=== PATIENT | female | born 1985 | race Caucasian/White ===

== ENCOUNTER 2021-07-18 05:54 | Emergency (ER) | payer SELFPAY ==
[~2021-07-18] VITALS: Ht 165 cm; Wt 64.3 kg
[~2021-07-18 05:54] MED LIST: ACET-789 PO; ACET1TAB43 PO; ACHD5005 PO; ALPR1TAB2 PO; ATEN25TA PO; BUPR100T7 PO; CODE-54 PO; CYCL10TA25 PO; DCS100C PO; DICL75TA2 PO; FLUO20CA42 PO; HYDR-3720 PO; HYDR-757 PO; Ibuprofen PO; LISI-594 PO; MELA1TAB10 PO; NAPR-1071 PO; OXYC1TAB87 PO; PRD20T PO; PREN1TAB86 PO; PRM25T PO; PROM25TA14 PO; RANI-609 PO; SERT50TA PO; SIMV20TA26 PO; TRM50T PO; VALP250C3 PO
[2021-07-18] MEDS ORDERED: LACTATED RINGERS 1,000 ML IV STA ×2 (06:22→10:08)
--- NOTE | 2021-07-18 06:22 | ED Back Pain ---
General Chief Complaint: Back Problems Stated Complaint: BACK PAIN/NAUSEA/VOMITING Nursing Triage Note: Pt c/o lower back pain with n/v since last . Pt denies urinary symptoms, fever, or back injury/trauma. Pt ambulatory with steady gait in ED but does appear to be in pain and is holding lower back. (DAVEY MG DO) History of Present Illness Date Seen by Provider: Jul 18, 2021 Time Seen by Provider: 06:15 Initial Comments 36-year-old female presents with low back pain. She reports that started about 6 days ago. That he gets worse with any type of movement. She also reports nausea and vomiting. Patient states that she had a stomach bug recently but she has some back pain before then. That is getting worse. It feels better if she keeps her legs up, worse with leg extension. That the pain is in the middle and radiates both sides but worse to the left. That she occasionally gets sharp shooting pain down her leg. She also has some pain in her left groin. She denies any fever or chills. She denies any dysuria. (DAVEY MG DO) Allergies and Home Medications Allergies Coded Allergies: cefaclor (Verified Allergy, Unknown, 06/08/15) latex (Verified Allergy, Unknown, 06/08/15) morphine (Verified Allergy, Unknown, 06/08/15) ITCHING sumatriptan (Verified Allergy, Unknown, 06/08/15) Patient Home Medication List Home Medication List Reviewed: Yes (DAVEY MG DO) Acetaminophen (Tylenol Extra Strength) 500 Mg Tablet, 1,000 MG PO Q6H Prescribed by: ÁNGEL VICKERS on 07/18/21 1202 Acetaminophen with Codeine (Tylenol with Codeine #3 Tablet) 1 Each Tablet, 1-2 EACH PO Q4H Prescribed by: TARA MCNALLY on 06/08/15 1417 Alprazolam (Xanax) 1 Mg Tablet, 1 MG PO TID, (Reported) Entered as Reported by: TARA MCNALLY on 06/08/15 1122 Atenolol (Atenolol) 25 Mg Tablet, 25 MG PO BID, (Reported) Entered as Reported by: ALBARO ESPINOZA on 11/19/14 1524 Bupropion HCl (Wellbutrin Sr) 100 Mg Tablet.er, Unknown Dose PO UD, (Reported) Entered as Reported by: SUSSY CHRISTIAN on 11/05/152139 Cyclobenzaprine HCl (Cyclobenzaprine HCl) 10 Mg Tablet, 10 MG PO Q8H PRN for SPASMS Prescribed by: ÁNGEL VICKERS on 07/18/211201 Ibuprofen (Ibuprofen) 600 Mg Tablet, 600 MG PO Q6H PRN for PAIN-MILD Prescribed by: ÁNGEL VICKERS on 07/18/21 120 Lidocaine (Lidocaine 5% Patch) 5 % Adh..patch, 1 EACH TP Q12H PRN for Neuropathic pain Prescribed by: ÁNGEL VICKERS on 07/18/211201 Naproxen (Naprosyn) 500 Mg Tablet, 500 MG PO BID PRN for PAIN Prescribed by: JAYDON MCCRARY on 11/05/152225 Oxycodone HCl/Acetaminophen (Percocet 5-325 mg Tablet) 1 Each Tablet, Unknown Dose PO UD, (Reported) Entered as Reported by: SUSSY CHRISTIAN on 11/05/152139 Prednisone (Prednisone) 20 Mg Tab, 40 MG PO DAILY Prescribed by: JAYDON MCCRARY on 11/05/152225 Simvastatin (Simvastatin) 20 Mg Tablet, 20 MG PO HS, (Reported) Entered as Reported by: CORIE GILL on 06/06/15 150 Valproic Acid (Valproic Acid) 250 Mg Capsule, 1 CAP PO BID, (Reported) Entered as Reported by: SUSSY CHRISTIAN on 11/05/152139 Review of Systems Constitutional: No chills, No fever EENTM: no symptoms reported Respiratory: no symptoms reported Cardiovascular: no symptoms reported Gastrointestinal: No abdominal pain, No diarrhea; nausea, vomiting Genitourinary: no symptoms reported Musculoskeletal: back pain Skin: no symptoms reported Psychiatric/Neurological: No Symptoms Reported (DAVEY MG DO) Past Izgvdcd-Dqvlyc-Xcjbml Hx Patient Social History Tobacco Use?: No Use of E-Cig and/or Vaping dev: Yes E-Cig or Vaping type used: Nicotine Use of E-Cig and/or Vaping Cristino: Current Everyday User Substance use?: No Alcohol Use?: No Pt feels they are or have been: No (DAVEY MG DO) Immunizations Up To Date Influenza Vaccine Up-to-Date: No; Not Current Second COVID19 Vaccination Luis Daniel: Moderna (DAVEY MG DO) Seasonal Allergies Seasonal Allergies: No (CHERI MGR Karli [place]) Past Medical History Hysterectomy, Nose Hypertension, Irregular Heartbeat Headaches /Migraines Reproductive Disorders: No 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 UTI-Chronic Arthritis Anxiety, Depression Adverse Reaction/Blood Tranf: No (CHERI MGR Karli [place]) Family Medical History Cancer Grandfather, Onset:Unknown (Pancreatic & Prostate) Dementia Grandfather, Onset:Unknown Family history: Arthritis 19 MOTHER, Onset:Unknown Family history: Diabetes mellitus 19 MOTHER, Onset:Unknown Family history: Gastrointestinal disease G8 BROTHER, Onset:Unknown ( IBS) Family history: Hypertension 19 MOTHER, Onset:Unknown Grandfather, Onset:Unknown Grandmother, Onset:Unknown Hearing loss G8 BROTHER, Onset:Unknown Daughter, Onset:Unknown History of - respiratory disease 19 MOTHER, Onset:Unknown (COPD) Stroke Grandfather, Onset:Unknown Grandmother, Onset:Unknown No Pertinent Family Hx (DAVEY MG DO) Physical Exam Vital Signs Vital Signs - First Documented 07/18/21 05:55 Temp 37.0 Pulse 151 Resp 17 B/P (MAP) 157/107 (124) Pulse Ox 97 O2 Delivery Room Air (ÁNGEL VICKESR MD) Vital Signs Capillary Refill : Less Than 3 Seconds (DAVEY MG DO) Height, Weight, BMI Height: 5'5" Weight: 128lbs. 3.2oz. 58.408710dg; 23.00 BMI Method:Stated General Appearance: Mild Distress Neck: Full Range of Motion, Normal Inspection Cardiovascular: Tachycardia Respiratory: Lungs Clear, Normal Breath Sounds Back: Vertebral Tenderness (diffuse lumbar ) Extremity: Normal Capillary Refill, Normal Range of Motion Neurologic/Psychiatric: Alert, Oriented x3, No Motor/Sensory Deficits, Normal Mood/Affect, client support consultant II-XII Norm as Tested Skin: Normal Color, Warm/Dry (DAVEY MG DO) Progress/Results/Core Measures Results/Orders Lab Results Laboratory Tests Test 07/18/21 06:05 07/18/21 06:10 Range/Units Urine Color YELLOW Urine Clarity CLEAR Urine pH 8.0 5-[address] [place] 1.015 L 1.016-1.022 Urine Protein NEGATIVE NEGATIVE Urine Glucose (UA) NEGATIVE NEGATIVE Urine Ketones NEGATIVE NEGATIVE Urine Nitrite NEGATIVE NEGATIVE Urine Bilirubin NEGATIVE NEGATIVE Urine Urobilinogen 0.2 < = 1.0 MG/DL Urine Leukocyte Esterase NEGATIVE NEGATIVE Urine RBC (Auto) NEGATIVE NEGATIVE Urine RBC RARE /HPF Urine WBC RARE /HPF Urine Squamous Epithelial Cells 2-5 /HPF Urine Crystals NONE /LPF Urine Bacteria TRACE /HPF Urine Casts NONE /LPF Urine Mucus MODERATE H /LPF Urine Culture Indicated NO White Blood Count 10.9 4.3-11.0 10^3/uL Red Blood Count 4.94 3.80-5.11 10^6/uL Hemoglobin 15.5 11.5-16.0 g/dL Hematocrit 44 35-52 % Mean Corpuscular Volume 88 80-99 fL Mean Corpuscular Hemoglobin 31 25-34 pg Mean Corpuscular Hemoglobin Concent 36 32-36 g/dL Red Cell Distribution Width 12.1 10.0-14.5 % Platelet Count 200 130-400 10^3/uL Mean Platelet Volume 9.9 9.0-12.2 fL Immature Granulocyte % (Auto) 0 % Neutrophils (%) (Auto) 90 H 42-75 % Lymphocytes (%) (Auto) 4 L 12-44 % Monocytes (%) (Auto) 5 0-12 % Eosinophils (%) (Auto) 1 0-10 % Basophils (%) (Auto) 0 0-10 % Neutrophils # (Auto) 9.7 H 1.8-7.8 10^3/uL Lymphocytes # (Auto) 0.5 L 1.0-4.0 10^3/uL Monocytes # (Auto) 0.6 0.0-1.0 10^3/uL Eosinophils # (Auto) 0.1 0.0-0.3 10^3/uL Basophils # (Auto) 0.0 0.0-0.1 10^3/uL Immature Granulocyte # (Auto) 0.0 0.0-0.1 10^3/uL Neutrophils % (Manual) 77 % Lymphocytes % (Manual) 1 % Monocytes % (Manual) 5 % Metamyelocytes % 1 % Myelocytes % 1 % Band Neutrophils 12 % Atypical Lymphocytes 1 % Reactive Lymphocytes 2 % Platelet Estimate NORMAL Blood Morphology Comment NORMAL Erythrocyte Sedimentation Rate 3 0-20 MM/HR Sodium Level 138 135-145 MMOL/L Potassium Level 4.3 3.6-5.0 MMOL/L Chloride Level 107 98-107 MMOL/L Carbon Dioxide Level 18 L 21-32 MMOL/L Anion Gap 13 5-14 MMOL/L Blood Urea Nitrogen 23 H 7-18 MG/DL Creatinine 0.62 0.60-1.30 MG/DL Estimat Glomerular Filtration Rate 119 BUN/Creatinine Ratio 37 Glucose Level 123 H 70-105 MG/DL Calcium Level 9.1 8.5-10.1 MG/DL Corrected Calcium 8.7 8.5-10.1 MG/DL Total Bilirubin 0.3 0.1-1.0 MG/DL Aspartate Amino Transf (AST/SGOT) 16 5-34 U/L Alanine Aminotransferase (ALT/SGPT) 21 0-55 U/L Alkaline Phosphatase 78 40-136 U/L C-Reactive Protein 0.78 H <0.50 MG/DL Total Protein 7.2 6.4-8.2 GM/DL Albumin 4.5 3.2-4.5 GM/DL (ÁNGEL VICKERS MD) My Orders Orders - ÁNGEL VICKERS MD Lactated Ringers (Lr 1000 Ml Iv Solution (07/18/21 10:08) Ketorolac Injection (Toradol Injection) (07/18/21 10:15) Cyclobenzaprine Tablet (Flexeril Tablet) (07/18/21 10:08) Gabapentin Capsule/Tablet (Neurontin Cap (07/18/21 10:15) Mri Lumbar Spine W/O Contrast (07/18/21 10:08) (ÁNGEL VICKERS MD) Medications Given in ED Current Medications Medications Dose Ordered Sig/Cassandra Route Start Time Stop Time Status Last Admin Dose Admin Diazepam 5 mg ONCE ONCE PO 07/18/21 07:30 07/18/21 07:32 DC 07/18/21 07:37 5 MG Fentanyl Citrate 50 mcg ONCE ONCE IVP 07/18/21 07:30 07/18/21 07:32 DC 07/18/21 07:38 50 MCG Gabapentin 300 mg ONCE ONCE PO 07/18/21 10:15 07/18/21 10:16 DC 07/18/21 10:23 300 MG Ketorolac Tromethamine 15 mg ONCE ONCE IVP 07/18/21 10:15 07/18/21 10:16 DC 07/18/21 10:25 15 MG Ondansetron HCl 4 mg ONCE ONCE IVP 07/18/21 06:30 07/18/21 06:31 DC 07/18/21 06:29 4 MG (ÁNGEL VICKERS MD) Vital Signs/I&O 07/18/21 07/18/21 07/18/21 07/18/21 05:55 06:58 09:15 10:05 Temp 37.0 Pulse 151 115 130 137 Resp 17 15 18 18 B/P (MAP) 157/107 (124) 135/83 128/84 (99) 133/100 (111) Pulse Ox 97 99 97 99 O2 Delivery Room Air Room Air Room Air Room Air (ÁNGEL VICKERS MD) Blood Pressure Mean: 124 Progress Progress Note : Progress Note Patient transferred for MRI spine. MRI lumbar spine here with some mild protrusion of the disc but no significant acute abnormality. Patient treated symptomatically. I will give her referral for a spine doctor if she would like. I believe she is stable for discharge with outpatient follow-up. She was sent home with strict return precautions (ÁNGEL VICKERS MD) Diagnostic Imaging Diagonstic Imaging: MRI (lumbar spine) Comments [facility], [place] NAME: MARIELLE MEJIA [facility] REC#: [id number] PT STATUS: REG ER : 1985 PHYSICIAN: ÁNGEL VICKERS MD ADMIT DATE: 07/18/21/ER Draft Date of Exam:07/18/21 MRI LUMBAR SPINE W/O CONTRAST PROCEDURE: MRI lumbar spine. TECHNIQUE: Multiplanar, multisequence MRI of the lumbar spine was performed without contrast. INDICATION: Low back pain. Leg weakness. Elevated CRP. COMPARISON: Lumbar spine radiographs 07/18/2021. FINDINGS: There are 5 lumbar-type vertebral bodies the purposes of this report. Grade 1 retrolisthesis of L5 on S1. Vertebral body heights preserved. Normal bone marrow signal. No abnormal signal in the conus which terminates at L1. Normal morphology of the cauda equina. Visualized pelvis and paravertebral soft tissues are unremarkable. L1-L2: Normal. L2-L3: Normal. L3-L4: Mild facet arthropathy. No spinal canal, lateral recess or neural foraminal narrowing. L4-L5: Mild facet arthropathy. No spinal canal, lateral recess or neural foraminal narrowing. L5-S1: Small central disc protrusion. This results in no substantial spinal canal or lateral recess narrowing. No neural foraminal narrowing. IMPRESSION: 1. Mild spondylotic changes including a small central disc protrusion at L5-S1 where there is also grade 1 retrolisthesis of L5 on S1. 2. No spinal canal, neural foraminal or lateral recess narrowing throughout the lumbar spine 3. No acute osseous findings. Dictated on workstation # [id number] Dict: 07/18/21 1136 Trans: 07/18/21 1142 [id number] Interpreted by: FRANCIA LILLY MD Electronically signed by: (ÁNGEL VICKERS MD) Departure Impression Primary Impression: Low back pain Qualified Codes: M54.40 - Lumbago with sciatica, unspecified side Disposition: 01 HOME, SELF-CARE Condition: Stable Departure-Patient Inst. Decision time for Depature: 11:56 (ÁNGEL VICKERS MD) Referrals: [facility] [place] Primary Care Physician Patient Instructions: Low Back Pain in Adults Add. Discharge Instructions: You do have a small disc protrusion at L5-S1 in your spine. This is possible the cause of your pain versus it could be a back spasm. I have sent the medications to your pharmacy to help with pain. Follow-up with your regular doctor. If pain persist you can follow-up with Dr. Martínez in [place] who is a spine doctor. Her number is [phone]. [facility] [place] NAME: MARIELLE MEJIA [facility] REC#: [id number] PT STATUS: REG ER : 1985 PHYSICIAN: ÁNGEL VICKERS MD ADMIT DATE: 07/18/21/ER Draft Date of Exam:07/18/21 MRI LUMBAR SPINE W/O CONTRAST PROCEDURE: MRI lumbar spine. TECHNIQUE: Multiplanar, multisequence MRI of the lumbar spine was performed without contrast. INDICATION: Low back pain. Leg weakness. Elevated CRP. COMPARISON: Lumbar spine radiographs 07/18/2021. FINDINGS: There are 5 lumbar-type vertebral bodies the purposes of this report. Grade 1 retrolisthesis of L5 on S1. Vertebral body heights preserved. Normal bone marrow signal. No abnormal signal in the conus which terminates at L1. Normal morphology of the cauda equina. Visualized pelvis and paravertebral soft tissues are unremarkable. L1-L2: Normal. L2-L3: Normal. L3-L4: Mild facet arthropathy. No spinal canal, lateral recess or neural foraminal narrowing. L4-L5: Mild facet arthropathy. No spinal canal, lateral recess or neural foraminal narrowing. L5-S1: Small central disc protrusion. This results in no substantial spinal canal or lateral recess narrowing. No neural foraminal narrowing. IMPRESSION: 1. Mild spondylotic changes including a small central disc protrusion at L5-S1 where there is also grade 1 retrolisthesis of L5 on S1. 2. No spinal canal, neural foraminal or lateral recess narrowing throughout the lumbar spine 3. No acute osseous findings. Dictated on workstation # [id number] Dict: 07/18/21 1136 Trans: 07/18/21 1142 [id number] Interpreted by: FRANCIA LILLY MD Electronically signed by: Dre Lidocaine (Lidocaine 5% Patch) 5 % Adh..patch 1 EACH TP Q12H PRN for Neuropathic pain MDD 2 for 7 Days, #14 PATCH 2 patches max for 12 hours, then 12 hours patch-free period. Prov: ÁNGEL VICKERS MD 07/18/21 Cyclobenzaprine HCl (Cyclobenzaprine HCl) 10 Mg Tablet 10 MG PO Q8H PRN for SPASMS for 5 Days, #15 TAB 0 Refills Prov: ÁNGEL VICKERS MD 07/18/21 Acetaminophen (Tylenol Extra Strength) 500 Mg Tablet 1000 MG PO Q6H for 7 Days, #56 TAB Prov: ÁNGEL VICKERS MD 07/18/21 Ibuprofen (Ibuprofen) 600 Mg Tablet 600 MG PO Q6H PRN for PAIN-MILD for 7 Days, #28 TAB Prov: ÁNGEL VICKERS MD 07/18/21 Work/School Note: Work Release Form Date Seen in the Emergency Department: Jul 18, 2021 Return to Work: Jul 22, 2021 Restrictions: No Restrictions DAVEY MG DO Jul 18, 2021 06:22 ÁNGEL VICKERS MD Jul 18, 2021 12:00
[2021-07-18] MEDS ORDERED: KETOROLAC 30 MG/ML VIAL ONE (06:27)
[2021-07-18] MEDS ORDERED: KETOROLAC 30 MG/ML VIAL IVP STA (06:28)
[2021-07-18] MEDS ORDERED: ONDANSETRON 4 MG/2 ML (SDV) Z0FRAN IVP ONE (06:30)
[2021-07-18 06:38] LABS: BILIRUBIN,URINE NEGATIVE (NEGATIVE); CLARITY,URINE CLEAR; COLOR,URINE YELLOW; GLUCOSE, URINE (UA) NEGATIVE (NEGATIVE); KETONES,URINE NEGATIVE (NEGATIVE); LEUKOCYTE ESTERASE ,URINE NEGATIVE (NEGATIVE); NITRITE,URINE NEGATIVE (NEGATIVE); PROTEIN,URINE NEGATIVE (NEGATIVE)
[2021-07-18 06:41] LABS: BASOPHILS % (AUTO) 0 % (0-10); EOSINOPHILS # (AUTO) 0.1 10^3/uL (0.0-0.3); EOSINOPHILS % (AUTO) 1 % (0-10); HEMATOCRIT 44 % (35-52); HEMOGLOBIN 15.5 g/dL (11.5-16.0); LYMPHOCYTES # (AUTO) 0.5 10^3/uL (1.0-4.0); LYMPHOCYTES % (AUTO) 4 % (12-44); MEAN CORPUSCULAR HEMOGLOBIN 31 pg (25-34); MEAN CORPUSCULAR HGB CONC 36 g/dL (32-36); MEAN CORPUSCULAR VOLUME 88 fL (80-99); MEAN PLATELET VOLUME 9.9 fL (9.0-12.2); MONOCYTES # (AUTO) 0.6 10^3/uL (0.0-1.0); MONOCYTES % (AUTO) 5 % (0-12); NEUTROPHILS # (AUTO) 9.7 10^3/uL (1.8-7.8); NEUTROPHILS % (AUTO) 90 % (42-75); PLATELET COUNT 200 10^3/uL (130-400); WHITE BLOOD COUNT 10.9 10^3/uL (4.3-11.0)
[2021-07-18 06:55] LABS: BACTERIA,URINE TRACE /HPF; RBC,URINE RARE /HPF; WBC,URINE RARE /HPF
[2021-07-18 07:00] LABS: POTASSIUM 4.3 MMOL/L (3.6-5.0)
[2021-07-18 07:01] LABS: ALBUMIN 4.5 GM/DL (3.2-4.5); BILIRUBIN,TOTAL 0.3 MG/DL (0.1-1.0); CALCIUM 9.1 MG/DL (8.5-10.1); CREATININE SERUM 0.62 MG/DL (0.60-1.30); TOTAL PROTEIN 7.2 GM/DL (6.4-8.2)
[2021-07-18 07:16] LABS: ATYPICAL LYMPHOCYTES 1 %; BAND NEUTROPHILS 12 %; ERYTHROCYTE SEDIMENTATION RATE 3 MM/HR (0-20); LYMPHOCYTES % (MANUAL) 1 %; METAMYELOCYTES % 1 %; MONOCYTES % (MANUAL) 5 %; MYELOCYTES % 1 %; NEUTROPHILS % (MANUAL) 77 %; REACTIVE LYMPHOCYTES 2 %
[2021-07-18 07:17] LABS: PLATELET ESTIMATE NORMAL; RBC MORPH NORMAL
[2021-07-18] MEDS ORDERED: fentaNYL INJ 100 MCG/2 ML AMP IVP ONE (07:30)
[2021-07-18] MEDS ORDERED: DIAZEPAM 5 MG (VALIUM) TABLET PO ONE (07:30)
--- NOTE | 2021-07-18 08:04 | Diagnostic Imaging Report ---
INDICATION: Low back pain FINDINGS: 3 views lumbar column demonstrate normal alignment. There is no subluxation or fracture. No degeneration seen. No osseous lesion. IMPRESSION: Negative lumbar spine. Dictated by: Dictated on workstation # [id number]
[2021-07-18] MEDS ORDERED: CYCLOBENZAPRINE 10 MG (FLEXERIL) TAB PO STA (10:08)
[2021-07-18] MEDS ORDERED: KETOROLAC 30 MG/ML VIAL IVP ONE (10:15)
[2021-07-18] MEDS ORDERED: GABAPENTIN 300 MG (NEURONTIN) CAP PO ONE (10:15)
--- NOTE | 2021-07-18 11:43 | Diagnostic Imaging Report ---
PROCEDURE: MRI lumbar spine. TECHNIQUE: Multiplanar, multisequence MRI of the lumbar spine was performed without contrast. INDICATION: Low back pain. Leg weakness. Elevated CRP. COMPARISON: Lumbar spine radiographs 07/18/2021. FINDINGS: There are 5 lumbar-type vertebral bodies the purposes of this report. Grade 1 retrolisthesis of L5 on S1. Vertebral body heights preserved. Normal bone marrow signal. No abnormal signal in the conus which terminates at L1. Normal morphology of the cauda equina. Visualized pelvis and paravertebral soft tissues are unremarkable. L1-L2: Normal. L2-L3: Normal. L3-L4: Mild facet arthropathy. No spinal canal, lateral recess or neural foraminal narrowing. L4-L5: Mild facet arthropathy. No spinal canal, lateral recess or neural foraminal narrowing. L5-S1: Small central disc protrusion. This results in no substantial spinal canal or lateral recess narrowing. No neural foraminal narrowing. IMPRESSION: 1. Mild spondylotic changes including a small central disc protrusion at L5-S1 where there is also grade 1 retrolisthesis of L5 on S1. 2. No spinal canal, neural foraminal or lateral recess narrowing throughout the lumbar spine 3. No acute osseous findings. Dictated by: Dictated on workstation # [id number]
[2021-07-18] MEDS ORDERED: CYCL10TA25 PO (12:02)
[2021-07-18] MEDS ORDERED: ACET-2267 PO (12:02)
[2021-07-18] MEDS ORDERED: LIDO700A45 TP (12:02)
[2021-07-18] MEDS ORDERED: IBUP-1773 PO (12:02)
[2021-07-18 12:12] VITALS: BP 133/95
== END 2021-07-18 12:12 | disposition home or self-care (01) ==
LOC: EDUNIT# 05:54 → ER FS 05:58 → ER 12:12
DX: M51.26 Other intervertebral disc displacement, lumbar region (principal); F17.290 Nicotine dependence, other tobacco product, uncomplicated; Z91.040 Latex allergy status; Z88.5 Allergy status to narcotic agent
CPT/HCPCS: 36415; 72100; 72148; 80053; 81000; 85007; 85027; 85652; 86141

== ENCOUNTER 2021-10-04 20:09 | Emergency (ER) | payer SELFPAY ==
[~2021-10-04] VITALS: Ht 165 cm; Wt 64.5 kg
[~2021-10-04 20:09] MED LIST changes: +ACET-11 PO; +ACET-2267 PO; -ACET1TAB43 PO; +IBUP-1773 PO; +LIDO700A45 TP
[2021-10-04] MEDS ORDERED: PROMETHAZINE INJ 25 MG/ML (PHENERGAN) AMP IM ONE (20:30)
[2021-10-04] MEDS ORDERED: PROMETHAZINE INJ 25 MG/ML (PHENERGAN) AMP IVP ONE (20:30)
[2021-10-04] MEDS ORDERED: KETOROLAC 60 MG/2 ML VIAL IM ONE (20:30)
[2021-10-04] MEDS ORDERED: ONDA4TAB11 PO (20:34)
--- NOTE | 2021-10-04 20:34 | ED Headache ---
General Chief Complaint: Head/Cervical Problems Stated Complaint: MIGRAINE Nursing Triage Note: Pt c/o migraine with n/v since 0700 today. Pt had tooth pulled yesterday and took a hydrocodone and thinks that might have triggered her headache. No relief from Toradol or Phenergan at home. Hx of migraines. Source: patient Exam Limitations: no limitations History of Present Illness Date Seen by Provider: Oct 04, 2021 Time Seen by Provider: 20:15 Initial Comments Patient is a 36-year-old female with history of recurrent migraines who presents with typical migraine headache starting earlier this morning. Patient states she had a tooth pulled yesterday which is triggered her migraine. Migraine is located in the right retro-orbital region and radiates to her right hindu in a similar location pattern and severity as prior migraines. Reports nausea with vomiting. Denies fever chills, sweats, neck pain stiffness. No extremity weakness or loss of sensation. Patient took home migraine medication this morning but immediately vomited. This is not the worst headache of the patient's life. Previous hysterectomy.. No other acute symptoms or complaints. Timing/Duration: 24 hours Severity/Quality: moderate Location: other Prior Headaches/Recent Trauma: other Modifying Factors: improves with other Associated Symptoms: other Allergies and Home Medications Allergies Coded Allergies: cefaclor (Verified Allergy, Unknown, 06/08/15) latex (Verified Allergy, Unknown, 06/08/15) morphine (Verified Allergy, Unknown, 06/08/15) ITCHING sumatriptan (Verified Allergy, Unknown, 06/08/15) Patient Home Medication List Home Medication List Reviewed: Yes Acetaminophen (Tylenol Extra Strength) 500 Mg Tablet, 1,000 MG PO Q6H Prescribed by: ÁNGEL VICKERS on 07/18/21 1202 Acetaminophen with Codeine (Tylenol with Codeine #3 Tablet) 1 Each Tablet, 1-2 EACH PO Q4H Prescribed by: TARA MCNALLY on 06/08/15 1417 Alprazolam (Xanax) 1 Mg Tablet, 1 MG PO TID, (Reported) Entered as Reported by: TARA MCNALLY on 06/08/15 1122 Atenolol (Atenolol) 25 Mg Tablet, 25 MG PO BID, (Reported) Entered as Reported by: ALBARO ESPINOZA on 11/19/14 1524 Bupropion HCl (Wellbutrin Sr) 100 Mg Tablet.er, Unknown Dose PO UD, (Reported) Entered as Reported by: SUSSY CHRISTIAN on 11/05/152139 Cyclobenzaprine HCl (Cyclobenzaprine HCl) 10 Mg Tablet, 10 MG PO Q8H PRN for SPASMS Prescribed by: ÁNGEL VICKERS on 07/18/21 120 Ibuprofen (Ibuprofen) 600 Mg Tablet, 600 MG PO Q6H PRN for PAIN-MILD Prescribed by: ÁNGEL VICKERS on 07/18/21 120 Lidocaine (Lidocaine 5% Patch) 5 % Adh..patch, 1 EACH TP Q12H PRN for Neuropathic pain Prescribed by: ÁNGEL VICKERS on 07/18/21 120 Naproxen (Naprosyn) 500 Mg Tablet, 500 MG PO BID PRN for PAIN Prescribed by: JAYDON MCCRARY on 11/05/152225 Oxycodone HCl/Acetaminophen (Percocet 5-325 mg Tablet) 1 Each Tablet, Unknown Dose PO UD, (Reported) Entered as Reported by: SUSSY CHRISTIAN on 11/05/152139 Prednisone (Prednisone) 20 Mg Tab, 40 MG PO DAILY Prescribed by: JAYDON MCCRARY on 11/05/152225 Simvastatin (Simvastatin) 20 Mg Tablet, 20 MG PO HS, (Reported) Entered as Reported by: COIRE GILL on 06/06/15 150 Valproic Acid (Valproic Acid) 250 Mg Capsule, 1 CAP PO BID, (Reported) Entered as Reported by: SUSSY CHRISTIAN on 11/05/152139 Review of Systems Review of Systems Constitutional: see HPI Eyes: See HPI Ears, Nose, Mouth, Throat: see HPI Respiratory: see HPI Cardiovascular: see HPI Gastrointestinal: see HPI Genitourinary: see HPI Musculoskeletal: see HPI Skin: see HPI Psychiatric/Neurological: See HPI All Other Systems Reviewed Negative Unless Noted: Yes Past Xpfncdw-Uswhgi-Slcowj Hx Patient Social History Tobacco Use?: No Use of E-Cig and/or Vaping dev: Yes E-Cig or Vaping type used: Nicotine Use of E-Cig and/or Vaping Cristino: Current Everyday User Substance use?: No Alcohol Use?: No Pt feels they are or have been: No Immunizations Up To Date First/Initial COVID19 Vaccinat: Moderna Second COVID19 Vaccination Luis Daniel: Moderna Seasonal Allergies Seasonal Allergies: No Past Medical History Hysterectomy, Nose Hypertension, Irregular Heartbeat Headaches /Migraines Reproductive Disorders: No 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 UTI-Chronic Arthritis Anxiety, Depression Adverse Reaction/Blood Tranf: No Family Medical History Cancer Grandfather, Onset:Unknown (Pancreatic & Prostate) Dementia Grandfather, Onset:Unknown Family history: Arthritis 19 MOTHER, Onset:Unknown Family history: Diabetes mellitus 19 MOTHER, Onset:Unknown Family history: Gastrointestinal disease G8 BROTHER, Onset:Unknown ( IBS) Family history: Hypertension 19 MOTHER, Onset:Unknown Grandfather, Onset:Unknown Grandmother, Onset:Unknown Hearing loss G8 BROTHER, Onset:Unknown Daughter, Onset:Unknown History of - respiratory disease 19 MOTHER, Onset:Unknown (COPD) Stroke Grandfather, Onset:Unknown Grandmother, Onset:Unknown No Pertinent Family Hx Physical Exam Vital Signs Vital Signs - First Documented 10/04/21 20:10 Temp 36.8 Pulse 106 Resp 17 B/P (MAP) 168/101 (123) Pulse Ox 99 O2 Delivery Room Air Capillary Refill : Less Than 3 Seconds Height, Weight, BMI Height: 5'5" Weight: 128lbs. 3.2oz. 58.093805br; 23.00 BMI Method:Stated General Appearance: mild distress (Secondary to pain) HEENT: PERRL/EOMI, normal ENT inspection Neck: full range of motion Respiratory: lungs clear Psychiatric: alert, oriented x 3 Crainal Nerves: PERRL Motor/Sensory: no sensory deficit Progress/Results/Core Measures Results/Orders My Orders Orders - FLORESITA RAMÍREZ DO Ketorolac Injection (Toradol Injection) (10/04/21 20:30) Promethazine Injection (Phenergan Injec (10/04/21 20:30) Vital Signs/I&O 10/04/21 20:10 Temp 36.8 Pulse 106 Resp 17 B/P (MAP) 168/101 (123) Pulse Ox 99 O2 Delivery Room Air Blood Pressure Mean: 123 Departure Communication (Admissions) Typical migraine headache without neurologic deficit. Supportive care provided. Recommendations are for home rest with continued migraine medication as needed. PCP follow-up early next week if symptoms persist. Return precautions reviewed. Patient verbalizes understanding agreement with discharge i nstructions prior to departure. Impression Primary Impression: Migraine headache Disposition: HOME, SELF-CARE Condition: Stable Departure-Patient Inst. Decision time for Depature: 20:33 Referrals: [facility] (PCP/Family) Primary Care Physician Patient Instructions: Migraines in Adults Add. Discharge Instructions: You were evaluated in the emergency department for migraine headache. Please go home and rest and take nausea medication as as prescribed and continue home migraine medication. Follow-up with your PCP early next week if symptoms persist. Return to the ED if new or worsening symptoms. All discharge instructions reviewed with patient and/or family. Voiced unders tanding. Scripts Ondansetron (Ondansetron Odt) 4 Mg Tab.rapdis 4 MG PO Q6H, #10 TAB Prov: FLORESITA RAMÍREZ DO 10/04/21 FLORESITA RAMÍREZ DO Oct 04, 2021 20:34
[2021-10-04 20:50] VITALS: BP 168/101
== END 2021-10-04 20:50 | disposition home or self-care (01) ==
LOC: EDUNIT# 20:09 → ER FS 20:09
DX: G43.909 Migraine, unspecified, not intractable, without status migrainosus (principal); F17.290 Nicotine dependence, other tobacco product, uncomplicated; Z91.040 Latex allergy status
CPT/HCPCS: 99284

== ENCOUNTER → 2022-01-01 | Outpatient (CLI) | payer BC ==
[~2022-01-01] MED LIST changes: +ONDA4TAB11 PO
== END ==
LOC: CARD 12:00
PROVIDERS: ATTEND Physician Assistant
DX: I51.7 Cardiomegaly (principal)
CPT/HCPCS: 93225; 93226; C8929; 93306

== ENCOUNTER → 2022-11-06 | Outpatient (CLI) | payer BC ==
[~2022-11-06] MED LIST changes: +CATHETER FLUSH 10 ML SYR IVP PRN
--- NOTE | 2022-11-06 09:55 | Diagnostic Imaging Report ---
PROCEDURE: US Gallbladder. TECHNIQUE: Multiple real-time grayscale images were obtained over the right upper quadrant in various projections. INDICATION: Right upper quadrant pain. FINDINGS: Liver is normal in size approximately 16 cm. Portal vein is patent and shows normal direction of flow. No liver mass is detected. The gallbladder is without calculi or sludge. There is no wall thickening or biliary ductal dilatation. The pancreas is mostly obscured by bowel gas. Aorta is nonaneurysmal. IVC is patent. There is questionable mild right-sided hydronephrosis. No calculi are seen. There is no ascites. IMPRESSION: 1. No evidence of cholelithiasis or acute cholecystitis. 2. Mild right-sided hydronephrosis. Dictated by: Dictated on workstation # [id number]
--- NOTE | 2022-11-06 13:08 | Diagnostic Imaging Report ---
INDICATION: Right upper quadrant pain COMPARISON: CT abdomen pelvis from 04/01/2015 TECHNIQUE: Anterior scintigraphic imaging of the abdomen was performed after the intravenous administration of 5.04 mCi Tc-99m Choletec. FINDINGS: The upper abdomen was imaged for 60 minutes with the gamma camera. There is prompt homogeneous uptake of radiopharmaceutical by the liver. There is activity in the common duct and gallbladder by 25 minutes. Small bowel activity is seen by 25 minutes. After 45 minutes, the patient received 8 oz of ensure by mouth. After 60 minutes, the gallbladder ejection fraction was calculated to be 44% which is normal. IMPRESSION: 1. Patent common and cystic bile ducts. 2. No gallbladder dysfunction. Dictated by: Dictated on workstation # [id number]
== END ==
LOC: RAD 08:00
PROVIDERS: ATTEND Surgery
DX: N13.30 Unspecified hydronephrosis (principal)
CPT/HCPCS: 76705; 78227; A9537

== ENCOUNTER 2022-11-12 16:24 | Outpatient (CLI) | payer BC ==
[~2022-11-12] VITALS: Ht 165.1 cm; Wt 66.8 kg
[~2022-11-12 16:24] MED LIST changes: -CATHETER FLUSH 10 ML SYR IVP PRN
[2022-11-12] MEDS ORDERED: NEBI5TAB8 PO (17:03)
[2022-11-12] MEDS ORDERED: CA C1TAB70 PO (17:03)
[2022-11-12] MEDS ORDERED: TOPI100T11 PO (17:03)
[2022-11-12] MEDS ORDERED: VITA1CAP PO (17:03)
[2022-11-12] MEDS ORDERED: POTA99CA PO (17:03)
[2022-11-12] MEDS ORDERED: BACI1TAB PO (17:03)
[2022-11-12] MEDS ORDERED: ESTR2TAB4 PO (17:03)
[2022-11-12] MEDS ORDERED: ASCO500T71 PO (17:03)
[2022-11-12] MEDS ORDERED: OMEG-82 PO (17:03)
[2022-11-13] MEDS ORDERED: ACET-11 PO (12:40)
== END 2022-11-12 17:40 | disposition home or self-care (01) ==
LOC: PREOP 16:24
PROVIDERS: ATTEND Surgery
DX: Z01.818 Encounter for other preprocedural examination (principal)

== ENCOUNTER 2022-11-13 11:08 | Day surgery (SDC) | payer BC ==
[2022-11-13] VITALS (10 sets, daily range): BP systolic 121–143; BP diastolic 66–93
[~2022-11-13] VITALS: Ht 165.1 cm; Wt 66.8 kg
[~2022-11-13 11:08] MED LIST changes: +ASCO500T71 PO; +BACI1TAB PO; +CA C1TAB70 PO; +ESTR2TAB4 PO; +NEBI5TAB8 PO; +OMEG-82 PO; +POTA99CA PO; +TOPI100T11 PO; +VITA1CAP PO
[2022-11-13] MEDS ORDERED: ceFAZolin INJECTION 2,000 MG in NS (IVPB) 50 ML 50 ML IV ONE (11:45)
[2022-11-13] MEDS: LACTATED RINGERS 1,000 ML 1,000 ML IV PRN ×2 (12:27→16:14)
[2022-11-13] MEDS ORDERED: CLINDAMYCIN 600 MG/50 ML IVPB 50 ML IV ONE ×2 (12:30→12:32)
--- NOTE | 2022-11-13 12:33 | Progress Note-Pre Operative ---
Pre-Operative Progress Note Date H&P Reviewed: Nov 13, 2022 Time H&P Reviewed: 12:30 History & Physical: H&P Reviewed, Patient Examed, No changes noted Pre-Operative Diagnosis: Symptomatic biliary dyskinesia, Reflux, Blood and muscus in stool JOSEPHINE RODRÍGUEZ APRN Nov 13, 2022 12:33
--- NOTE | 2022-11-13 12:34 | Progress Note-Pre Operative ---
Pre-Operative Progress Note Date of Available H&P: Nov 13, 2022 Date H&P Reviewed: Nov 13, 2022 Time H&P Reviewed: 12:30 History & Physical: No changes noted Pre-Operative Diagnosis: biliary dyskinesia, GERD, diarrhea, rectal bleed CHRISS ROSARIO MD Nov 13, 2022 12:34
[2022-11-13] MEDS ORDERED: ACET-11 PO (12:40)
--- NOTE | 2022-11-13 12:41 | Discharge Inst-Surgical ---
D/C Lap Instructions-KIDO Reconcile Patient Problems Problems Reviewed?: Yes New, Converted, or Re-Newed RX: RX on Chart Follow Up Appt in 2 weeks Activity as tolerated No driving for 24 hours No driving while on pain medications Incentive Spirometry use every 2 hours while awake High Fiber Diet 25g or more per day Avoid Alcohol, Caffeine, Spicy [place] and Acid foods. Drink 64 fluid oz or more of fluids per day. Symptoms to Report: Fever over 101 degree F, Nausea/Vomiting If any problems/questions: Contact your physician or go to Emergency Room Bathing instructions: May shower Operative Area Clean/Dry; Keep incision clean/dry JOSEPHINE RODRÍGUEZ APRN Nov 13, 2022 12:41
[2022-11-13] MEDS ORDERED: ONDANSETRON INJECTION 4 MG/2 ML (SDV) IVP PRN ×2 (12:45→15:15)
[2022-11-13] MEDS ORDERED: fentaNYL INJECTION 100 MCG/2 ML VIAL IVP PRN (12:45)
[2022-11-13] MEDS ORDERED: ACETAMINOPHEN PO PRN (12:45)
[2022-11-13] MEDS ORDERED: ACETAMINOPHEN 325 MG TABLET PO PRN (12:45)
[2022-11-13] MEDS ORDERED: CODEINE 30 MG PO PRN (12:45)
[2022-11-13] MEDS ORDERED: LIDOCAINE 1% w/EPI 1:100,000 20 ML VIAL ONE (12:56)
[2022-11-13] MEDS ORDERED: LIDOCAINE 1% w/EPI 1:100,000 20 ML VIAL INJ ONE (13:21)
[2022-11-13] MEDS ORDERED: proPOfol INJECTION 200 MG/20 ML VIAL IV ONE (13:31)
[2022-11-13] MEDS ORDERED: LIDOCAINE PF 2% 5 ML VIAL ONE (13:31)
[2022-11-13] MEDS ORDERED: fentaNYL INJECTION 100 MCG/2 ML VIAL ONE (13:31)
[2022-11-13] MEDS ORDERED: MIDAZOLAM INJ 2 MG/2 ML VIAL ONE (13:31)
[2022-11-13] MEDS ORDERED: ONDANSETRON INJECTION 4 MG/2 ML (SDV) ONE ×3 (13:57→16:09)
[2022-11-13] MEDS ORDERED: dexAMETHasone INJ 10 MG/ML 1 ML VIAL ONE (13:57)
[2022-11-13] MEDS ORDERED: GLYCOPYRROLATE INJ 0.2 MG/ML 2 ML VIAL ONE (14:37)
[2022-11-13] MEDS ORDERED: ROCURONIUM 50 MG/5 ML VIAL IV ONE (14:37)
[2022-11-13] MEDS ORDERED: NEOSTIGMINE 1 MG/1ML 10 ML VIAL ONE (14:37)
--- NOTE | 2022-11-13 14:52 | Progress Note-Post Operative ---
Post-Operative Progess Note Surgeon (s)/Melter Operator (s) Surgeon Dr. Joel Gordon M.D. Melter Operator: Armen Rodríguez BLACKJACK P[employer] BOSS Pre-Operative Diagnosis biliary dyskinesia, GERD, diarrhea, rectal bleed Post-Operative Diagnosis Biliary dyskinesia, reflux esophagitis [place] grade B, small hiatal hernia (1 cm in size), moderate Gastritis, mild proctitis Procedure & Operative Findings Date of Procedure 11/13/22 Procedure Performed/Findings Laparoscopic cholecystectomy, EGD with biopsy, Colonoscopy with biopsy Anesthesia Type GET Estimated Blood Loss Estimated blood loss (mL): Minimal Specimens/Packing Specimens Removed 1) Gallbladder 2) Antrum 3) GE Junction 4) Rectum Biopsy ARMEN RODRÍGUEZ BLACKJACK P[employer] BOSS Nov 13, 2022 14:52
[2022-11-13] MEDS ORDERED: SEVOFLURANE (ULTANE) 15 ML INHAL SOLN ONE (15:00)
[2022-11-13] MEDS ORDERED: KETOROLAC INJ 30 MG/ML VIAL ONE (15:01)
--- NOTE | 2022-11-13 15:13 | Anesthesia-General Post-Op ---
General Patient Condition Mental Status/LOC: Same as Preop Cardiovascular: Satisfactory Nausea/Vomiting: Absent Respiratory: Satisfactory Pain: Controlled Complications: Absent Post Op Complications Complications None Follow Up Care/Instructions Patient Instructions None needed. Anesthesia/Patient Condition Patient Condition Patient is doing well, no complaints, stable vital signs, no apparent adverse anesthesia problems. No complications reported per nursing. D/C [place] per [facility] [place]: Yes IAN HELLER CRNA Nov 13, 2022 15:13
[2022-11-13] MEDS ORDERED: HYDROmorphone INJECTION 2 MG/ML VIAL IV ONE (15:15)
[2022-11-13] MEDS ORDERED: HYDROmorphone INJECTION 2 MG/ML VIAL ONE (15:15)
[2022-11-13] MEDS ORDERED: CODEINE 30 MG ONE (16:09)
[2022-11-13] MEDS ORDERED: ACETAMINOPHEN ONE (16:09)
--- NOTE | 2022-11-13 22:43 | OPERATIVE REPORT ---
DATE OF SERVICE: 11/13/2022 ATTENDING BUSINESS CONSULT: [facility]. PREOPERATIVE DIAGNOSES: Symptomatic biliary dyskinesia, gastroesophageal reflux disease, diarrhea, red blood per rectum. POSTOPERATIVE DIAGNOSES: Symptomatic biliary dyskinesia, reflux esophagitis [place] grade B; small hiatal hernia, 1 cm in size, moderate gastritis. Mild proctitis. PROCEDURE: Laparoscopic cholecystectomy, EGD with biopsy, colonoscopy with biopsy. SURGEON: Chriss Rosario MD ANESTHESIA: General endotracheal. ESTIMATED BLOOD LOSS: Minimal. FINDINGS: Symptomatic biliary dyskinesia, reflux esophagitis [place] grade B; small hiatal hernia, 1 cm in size, moderate gastritis. Mild proctitis. DISPOSITION: The patient tolerated the procedure well. INDICATIONS: The patient is a 37-year-old female who has had multiple gastrointestinal issues. She reports that she has had a longstanding history of gastroesophageal reflux disease; however, this has worsened over time and does report pain in the epigastric region. She also then reports developing pain more in the right upper abdominal quadrant, usually after meals and this was associated with nausea and vomiting. She states that this was initially mild and not frequent; however, has become more severe in nature over time. An ultrasound was performed, which did not show any gallstones; however, HIDA scan showed an ejection fraction of 44%. However, she did have reproduction of symptoms with the administration of the Kinevac analogue with crampy abdominal pain, nausea and diarrhea. The patient reports that she has also had intermittent episodes of diarrhea for years; however, in the past several months, this has become much more significant and now she has noticed some mucousy stools mixed with blood. She does have a family history of inflammatory bowel disease with a brother having the disease as well as rheumatoid arthritis. DESCRIPTION OF PROCEDURE: The patient was brought to the operating room, laid supine on the table. After adequate IV pain and sedative medications and general endotracheal intubation, the abdomen was prepped and draped in standard surgical fashion. A 0.5% Marcaine with epinephrine was used to anesthetize the overlying skin in the left upper abdominal quadrant and a transverse skin incision made using a #15 blade. An 0 silk suture was applied to the medial aspect of the incision for retraction and a Veress needle inserted with a low opening pressure of 0 mmHg and the abdomen was then insufflated to 15 mmHg pressure. The Veress needle removed and a 5 mm trocar placed followed by a 5 mm 45-degree angle laparoscope visualizing the peritoneal cavity. A 4-quadrant abdominal exploration was performed. There was a slightly distended gallbladder with omental adhesions towards the fundus of the gallbladder, no gallbladder wall thickening. Under direct visualization, we then proceeded to place a supraumbilical 10 mm port after the skin and peritoneal lining were anesthetized using 0.5% Marcaine with epinephrine and a transverse skin incision made using a #15 blade. In a similar manner, a right upper abdominal quadrant 5 mm port was placed. The patient was then placed in reverse Trendelenburg position as well as plane right side up, left side down. The fundus of the gallbladder was then retracted anteriorly and superiorly and the omental adhesions were taken down using electrocautery on the hook instrument. The hepatoduodenal ligament was then dissected bluntly as well as using electrocautery on the hook instrument as well as the [place] dissector. The entire critical view of safety was identified including the triangle of Calot as well as the cystic duct and artery as the only 2 structures going into the gallbladder as well as the cystic plate behind the proximal gallbladder. A timeout was then taken and the cystic duct and artery were then clipped proximally and distally and cut with EndoShears. The gallbladder was then dissected off of the liver bed using cautery on hook instrument with visualization of good hemostasis as well as no leaking ducts of Luschka. The gallbladder was removed through the 10 mm port site using an EndoCatch bag. The 10 mm port site fascia and peritoneum were then closed under direct visualization using a Alexi-Roseline device and an 0 Vicryl suture. The abdomen was then desufflated and the remaining ports were removed. All skin incisions were closed using 4-0 Monocryl running subcuticular sutures. Wounds were then cleaned and covered with Dermabond. A mouthpiece was then applied and the endoscope was placed in the mouth, visualizing the pharynx and hypopharyngeal region. Vocal cords, epiglottis and vallecula identified and appeared to be normal. The endoscope was then gently intubated into the esophageal opening and esophagus insufflated. The endoscope was then advanced to the first, second and third portions of esophagus; at the level of the GE junction, reflux esophagitis, [place] grade B identified. No ulcers or strictures identified in this region and a biopsy was taken with forceps with visualization of good hemostasis. The endoscope was then advanced into the stomach and endoscope retroflexed, visualizing a small hiatal hernia approximately 1 cm in size. There was a moderate severity gastritis, more towards the stomach antrum, no formal ulcers, polyps, or any neoplasms. A biopsy was taken of the stomach, antrum to rule out H. pylori with visualization of good hemostasis. The endoscope was then advanced through the pylorus and the first and second portions of the duodenum, which appeared normal. The endoscope was then slowly withdrawn while taking a second look and suctioning of residual air with no additional findings. The patient was then placed in frogleg position and a digital rectal examination was performed. No significant hemorrhoids identified. Normal sphincter tone was felt and there were no palpable masses. The endoscope was then intubated into the anus and rectum gently insufflated. The endoscope was then advanced through the valves of Victor of the rectum where there was a [id number] proctitis identified with no active bleeding. Biopsies were taken with forceps with visualization of good hemostasis. The endoscope was then advanced through the sigmoid colon where no mucosal inflammatory changes identified. The endoscope was then advanced through the remainder of the descending, transverse and ascending colon to the cecum, which appeared normal as well. No other signs of inflammation. The endoscope was then slowly withdrawn while taking a second look and suctioning of residual air with no additional findings. The patient tolerated the procedure well. We will start IV and oral pain medication as well as a clear liquid diet. When she is tolerating clears, has good pain control with oral pain medications, ambulating well, we will discharge her home. For her reflux esophagitis, small hiatal hernia as well as gastritis, we will recommend the necessary lifestyle and dietary accommodation including small and more frequent meals, avoidance of eating at night as well as head elevation while lying supine. She also needs to avoid caffeinated beverages, spicy, greasy and acidic foods. We will also start her on Protonix 40 mg daily. 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 We will await the biopsies; however, treat her for the first line therapy for a chronic active colitis, which would encompass 5 aminosalicylic acid 800 mg t.i.d. for the next 6 weeks. We will have her follow up in the office and assess how she is doing as well as refer her to Gastroenterology as well. Job ID: [id number] DocumentID: [id number] Dictated Date: 11/13/2022 15:22:29 Commercial Door Installer Date: 11/13/2022 22:41:00 Dictated By: CHRISS ROSARIO MD
== END 2022-11-13 17:05 ==
LOC: SDC 11:08
PROVIDERS: ATTEND Surgery
DX: K29.50 Unspecified chronic gastritis without bleeding (principal); K21.00 Gastro-esophageal reflux disease with esophagitis, without bleeding; K82.8 Other specified diseases of gallbladder; K81.1 Chronic cholecystitis; K62.5 Hemorrhage of anus and rectum; K44.9 Diaphragmatic hernia without obstruction or gangrene; K62.89 Other specified diseases of anus and rectum; R19.7 Diarrhea, unspecified; B96.81 Helicobacter pylori [H. pylori] as the cause of diseases classified elsewhere; F17.290 Nicotine dependence, other tobacco product, uncomplicated
CPT/HCPCS: 87081; 94664